=== PATIENT | female | born 1995 | race Caucasian/White ===

== ENCOUNTER 2017-09-03 00:26 | Emergency (ER) | payer SELFPAY, OTHER ==
[2017-09-03 02:27] LABS: URINE BLOOD (Dip) POC Negative (NEGATIVE); URINE GLUCOSE (Dip) POC Negative (NEGATIVE); URINE KETONES (Dip) POC Negative (NEGATIVE); URINE LEUKOCYTE EST (Dip) POC Negative (NEGATIVE); URINE NITRITE (Dip) POC Negative (NEGATIVE); URINE TOTAL PROTEIN POC Negative (NEGATIVE)
== END 2017-09-03 03:07 | disposition home or self-care (01) ==
LOC: FTE 00:26
DX: N39.0 Urinary tract infection, site not specified (principal)
CPT/HCPCS: 81003; 99283